=== PATIENT | female | born 1950 | race Caucasian/White ===

== ENCOUNTER → 2016-12-12 | Outpatient (CLI) | payer MEDICARE | LOC: EXRD 11:24 | DX: J44.1 Chronic obstructive pulmonary disease with (acute) exacerbation (principal) | CPT/HCPCS: 71020 ==

== ENCOUNTER → 2017-01-14 | Outpatient (CLI) | payer MEDICARE | LOC: MAMO 09-25 13:40 | DX: Z12.31 Encounter for screening mammogram for malignant neoplasm of breast (principal) | CPT/HCPCS: G0202 ==

== ENCOUNTER → 2021-05-20 | Outpatient (CLI) | payer MEDICARE | LOC: EXRD 11:32 | DX: R07.81 Pleurodynia (principal) | CPT/HCPCS: 71101 ==

== ENCOUNTER → 2021-08-05 | Outpatient (CLI) | payer MEDICARE | LOC: KOH-I 10:24 | DX: Z87.891 Personal history of nicotine dependence (principal); R91.8 Other nonspecific abnormal finding of lung field | CPT/HCPCS: 71271 ==

== ENCOUNTER → 2021-09-20 | Outpatient (CLI) | payer MEDICARE ==
[2021-09-21 07:09] LABS: A/G RATIO 1.7 (1.2-2.2); ALKALINE PHOSPHATASE, S 52 IU/L (44-121); ALT (SGPT) 24 IU/L (0-32); AST (SGOT) 28 IU/L (0-40); BILIRUBIN, TOTAL 0.5 mg/dL (0.0-1.2); BUN 16 mg/dL (8-27); BUN/CREATININE RATIO 16 (12-28); CALCIUM, SERUM 9.9 mg/dL (8.7-10.3); CARBON DIOXIDE, TOTAL 27 mmol/L (20-29); CHLORIDE, SERUM 101 mmol/L (96-106); CHOLESTEROL, TOTAL 209 mg/dL (100-199); CREATININE, SERUM 1.03 mg/dL (0.57-1.00); EGFR IF AFRICN AM 65 (>59); EGFR IF NONAFRICN AM 56 (>59); GLOBULIN, TOTAL 2.9 g/dL (1.5-4.5); GLUCOSE, SERUM 94 mg/dL (65-99); HDL CHOLESTEROL 57 mg/dL (>39); LDL CHOLESTEROL CALC 127 mg/dL (0-99); LDL/HDL RATIO 2.2 ratio (0.0-3.2); POTASSIUM, SERUM 4.2 mmol/L (3.5-5.2); PROTEIN, TOTAL, SERUM 7.7 g/dL (6.0-8.5); SODIUM, SERUM 142 mmol/L (134-144); T. CHOL/HDL RATIO 3.7 ratio (0.0-4.4); TRIGLYCERIDES 139 mg/dL (0-149)
[2021-09-21 08:13] LABS: VITAMIN D, 25-HYDROXY 23.4 ng/mL (30.0-100.0)
== END ==
LOC: LAB 10:59
PROVIDERS: Family Medicine
DX: E55.9 Vitamin D deficiency, unspecified (principal); E03.9 Hypothyroidism, unspecified; E53.8 Deficiency of other specified B group vitamins
CPT/HCPCS: 36415; 80053; 80061; 82607; 84439; 84443

== ENCOUNTER → 2021-10-02 | Outpatient (CLI) | payer MEDICARE | LOC: MAMO 13:30 | DX: Z12.31 Encounter for screening mammogram for malignant neoplasm of breast (principal); M81.0 Age-related osteoporosis without current pathological fracture; Z78.0 Asymptomatic menopausal state | CPT/HCPCS: 77063; 77067; 77080 ==

== ENCOUNTER → 2022-02-28 | Outpatient (CLI) | payer MEDICARE ==
[~2022-02-28] VITALS: Ht 172.7 cm; Wt 100.7 kg
== END ==
LOC: EROP 12:24
DX: U07.1 COVID-19 (principal); Z23 Encounter for immunization; I10 Essential (primary) hypertension; J98.4 Other disorders of lung
CPT/HCPCS: M0222; Q0222